=== PATIENT | male | born 1975 | race Caucasian/White ===

== ENCOUNTER 2019-02-05 01:19 | Inpatient (IN) | payer MEDICAID ==
[~2019-02-05] VITALS: Ht 172.7 cm; Wt 95.3 kg
--- NOTE | 2019-02-05 01:30 | NUR ---
Pt. ambulated into ED w/ c/o 01/22 midsternal CP x 4 hours, states the pain began 2 days ago then stopped, denies SOB/GROSS/F/C/N/V/D, RR rate even and unlabored, speaks in clear and complete sentences, male family member at bedside,
[2019-02-05] MEDS ORDERED: ASPIRIN 81 MG TAB.CHEW PO ONE (01:45)
[2019-02-05 01:56] LABS: BASOPHILS # (AUTO) 0.1 K/uL (0.0-8.0); BASOPHILS % (AUTO) 0.4 % (0.0-2.0); EOSINOPHILS # (AUTO) 0.1 K/uL (0.0-0.7); EOSINOPHILS % (AUTO) 1.1 % (0.0-7.0); HEMOGLOBIN 14.5 g/dL (12.5-16.3); LYMPHOCYTES # (AUTO) 4.7 K/uL (20.0-40.0); MEAN CORPUSCULAR HEMOGLOBIN 28.8 uug (23.8-33.4); MEAN CORPUSCULAR HGB CONC 33 g/dL (32.5-36.3); MEAN CORPUSCULAR VOLUME 87.2 fL (73.0-96.2); MONOCYTES # (AUTO) 0.8 K/uL (2.0-10.0); MONOCYTES % (AUTO) 6.2 % (0.0-11.0); NEUTROPHILS # (AUTO) 6.7 K/uL (1.8-8.9); NEUTROPHILS % (AUTO) 54.3 % (38.5-71.5); PLATELET COUNT (AUTO) 244 K/uL (152-348); RED BLOOD CELL COUNT(AUTO) 5.04 MIL/uL (4.06-5.63); WHITE BLOOD COUNT (AUTO) 12.4 K/uL (3.6-10.2)
[2019-02-05 02:02] LABS: CARBON DIOXIDE 25 mmol/L (21-32); CHLORIDE 104 mmol/L (98-107); CREATININE 0.8 mg/dL (0.6-1.3); GLUCOSE 88 mg/dL (74-106); POTASSIUM 3.9 mmol/L (3.5-5.1); UREA NITROGEN, BLOOD 10 mg/dL (7-18)
[2019-02-05] MEDS ORDERED: ASPIRIN 81 MG TAB.CHEW ONE (02:02)
--- NOTE | 2019-02-05 02:04 | NUR ---
Rad. tech at bedside for CXR
[2019-02-05 02:15] LABS: ALANINE AMINOTRANSFERASE 75 U/L (16-63); ALKALINE PHOSPHATASE 70 U/L (50-136); ASPARTATE AMINOTRANSFERASE 23 U/L (15-37); BILIRUBIN,DIRECT 0.1 mg/dL (0.0-0.2); BILIRUBIN,TOTAL 0.4 mg/dL (0.2-1.0); TOTAL PROTEIN, SERUM 7.3 g/dL (6.4-8.2)
--- NOTE | 2019-02-05 02:18 | NUR ---
on phone w/ Mirian Fowler,
[2019-02-05] MEDS ORDERED: NITROGLYCERIN OINT 1 GM PACKET TP ONE ×2 (02:30→02:52)
[2019-02-05] MEDS ORDERED: ATORVASTATIN 40 MG TABLET PO SCH (02:30)
[2019-02-05] MEDS ORDERED: METOPROLOL TARTRATE 50 MG TABLET PO ONE ×2 (02:30→09:45)
[2019-02-05] MEDS ORDERED: ENOXAPARIN SODIUM 100 MG/ML DISP.SYRIN SQ ONE ×2 (02:30→02:52)
[2019-02-05] MEDS ORDERED: METOPROLOL TARTRATE 50 MG TABLET ONE (02:53)
--- NOTE | 2019-02-05 03:00 | NUR ---
Gave report to Osvaldo JAY,
[2019-02-05] MEDS ORDERED: ATORVASTATIN 40 MG TABLET ONE (03:19)
[2019-02-05] MEDS ORDERED: MAGNESIUM HYDROXIDE 30 ML LIQUID UDC PO PRN (03:30)
[2019-02-05] MEDS ORDERED: ACETAMINOPHEN 325 MG TABLET PO PRN (03:30)
[2019-02-05] MEDS ORDERED: MORPHINE SULFATE 2 MG/1 ML DISP.SYRIN IV PRN (03:30)
[2019-02-05] MEDS ORDERED: Z GUARD REMEDY PASTE 57 GM TUBE TOP PRN (03:30)
[2019-02-05] MEDS ORDERED: ONDANSETRON 4 MG/2 ML VIAL IV PRN (03:30)
[2019-02-05] MEDS ORDERED: HYDROCODONE/APAP 5-325MG TABLET PO PRN (03:30)
--- NOTE | 2019-02-05 04:09 | NUR ---
Pt. taken off unit via stretcher, VSS, NAD, IV intact no s/s infiltration/phlebitis
--- NOTE | 2019-02-05 04:10 | NUR ---
Admitted a 43 y.o male patient to room 304 DX: chest pain R/O ACS. Patient AAO, denies chest pain at this time. Friend at bedside. Plan of care discussed with patient; verbalized understanding. C/o pain to LFA IV site; dc'd. New saline lock inserted to LW area.
--- NOTE | 2019-02-05 05:00 | NUR ---
Admission assessment completed. here. Plan of care discussed again with patient and .
[2019-02-05 05:06] VITALS: BP 126/87
--- NOTE | 2019-02-05 07:38 | NUR ---
patient is sleeping in bed comfortably, no acute distress noted at this time
--- NOTE | 2019-02-05 07:39 | NUR ---
patient is sleeping in bed, no acute distress noted.
[2019-02-05 08:00] VITALS: BP 115/60
[2019-02-05] MEDS ORDERED: ENOXAPARIN SODIUM 40 MG/0.4 ML DISP.SYRIN SQ SCH (09:00)
[2019-02-05] MEDS ORDERED: ASPIRIN 81 MG TAB.CHEW PO SCH (09:00)
--- NOTE | 2019-02-05 09:40 | NUR ---
PATIENT IS ALERT, ORIENTED X4, VERBALLY RESPONSIVE, NO SOB, RESP EVEN NONLABORED, SKIN WARM AND DRY TO TOUCH, PATIENT DENIED ANY CHEST PAIN AT THIS TIME, TALKING ON THE PHONE WITH FAMILY, EDUCATION PROVIDED TO PATIENT FOR QUIT SMOKING, AND COPING MECHANISMS FOR STRESS RELIEF. PATIENT VERBALIZED UNDERSTANDING OF IT. NO ACUTE DISTRESS NOTED AT THIS TIME
[2019-02-05] MEDS ORDERED: ENOXAPARIN SODIUM 60 MG/0.6 ML DISP.SYRIN SQ ONE (10:30)
[2019-02-05 11:11] VITALS: BP 116/76
--- NOTE | 2019-02-05 13:35 | NUR ---
PATIENT LEFT AMA, PATIENT WAS SCHEDULED CARDIAC CTA AT 1400, AT [facility], DENIED TO GO FOR PROCEDURE, RISKS AND BENEFITS EXPLAINED BY FITTER TYPE BAR AND SEGMENT DR CASTRO. RISKS AND BENEFITS EXPLAINED BY CHARGE NURSE WELL, PATIENT STILL INSISTED TO GO AMA, PATIENT VERBALIZED UNDERSTANDING OF RISKS AND BENEFITS, PATIENT RIGHT RESPECTED, PATIENT IS ALERT, ORIENTED X4, NO ACUTE DISTRESS NOTED AT THIS TIME.
[2019-02-05] MEDS ORDERED: ATORVASTATIN 20 MG TABLET PO SCH (21:00)
== END 2019-02-05 13:30 | disposition left against medical advice (07) | DRG 203 ==
LOC: ER 01:22 → TELE3 03:45
PROVIDERS: ADMIT Nurse Practitioner Acute Care; ATTEND Internal Medicine
DX: R07.9 Chest pain, unspecified (principal); D72.829 Elevated white blood cell count, unspecified; F17.210 Nicotine dependence, cigarettes, uncomplicated; I10 Essential (primary) hypertension; R94.31 Abnormal electrocardiogram [ECG] [EKG]; M54.2 Cervicalgia
CPT/HCPCS: 36415; 70030-TC; 71045; 85025; 85730; 93005; 93307; A4663; G0378; J1650; J3490